=== PATIENT | female | born 1970 | race Two or more races ===

== ENCOUNTER 2024-09-18 12:07 | Emergency (ER) | payer OTHER ==
[~2024-09-18] VITALS: Ht 160 cm; Wt 73.9 kg
[2024-09-18 12:42] VITALS: BP 98/66; O2SAT 100
[2024-09-18] MEDS ORDERED: NORVASC10 MG PO (12:44)
[2024-09-18] MEDS ORDERED: CATAPRES0.3 MG PO (12:45)
[2024-09-18] MEDS ORDERED: AVAPRO150 MG PO (12:46)
== END 2024-09-18 17:13 | disposition left against medical advice (07) ==
LOC: ER 12:09
DX: Z53.21 Procedure and treatment not carried out due to patient leaving prior to being seen by health care provider (principal)